=== PATIENT | male | born 1980 | race Two or more races ===

== ENCOUNTER 2018-12-07 12:37 | Emergency (ER) | payer SELFPAY ==
[~2018-12-07] VITALS: Ht 177.8 cm; Wt 83.0 kg
[2018-12-07 16:10] VITALS: BP 138/63
== END 2018-12-07 16:40 | disposition home or self-care (01) ==
LOC: ER 14:02
DX: S52.591A Other fractures of lower end of right radius, initial encounter for closed fracture (principal); Y93.89 Activity, other specified; Y35.893A Legal intervention involving other specified means, suspect injured, initial encounter; Y92.9 Unspecified place or not applicable
CPT/HCPCS: 29125; 73110; 99283